=== PATIENT | male | born 1950 | race Caucasian/White ===

== ENCOUNTER 2023-12-18 12:31 | Day surgery (SDC) | payer MEDICARE, OTHER ==
[~2023-12-18] VITALS: Ht 175.3 cm; Wt 83.8 kg
[~2023-12-18 12:31] MED LIST: CIPR500 PO; DIPH50 PO; FELDENE; Flomax0.4 MG PO; HYDR1TAB94 PO; Lactated Ringer's 1,000 ML IV ONE; OLME40 PO; PIRO20 PO; Pyridium100 MG PO; SENN187 PO; TAMS.4ER PO; propofoL 50 ML IV ONE
[2023-12-18] MEDS ORDERED: PIOG15 (13:59)
[2023-12-18] MEDS ORDERED: Lactated Ringer's 1,000 ML IV ONE (14:29)
[2023-12-18 15:49] VITALS: BP 117/82
== END 2023-12-18 15:46 | disposition home or self-care (01) ==
LOC: ORSCSDS 12:31
PROVIDERS: Internal Medicine Gastroenterology
PROC: 0DBH8ZX Excision of Cecum, Via Natural or Artificial Opening Endoscopic, Diagnostic (ICD-10-PCS; principal; 2023-12-18 14:30)
PROC: 0DBK8ZX Excision of Ascending Colon, Via Natural or Artificial Opening Endoscopic, Diagnostic (ICD-10-PCS; principal; 2023-12-18 14:30)
DX: Z12.11 Encounter for screening for malignant neoplasm of colon (principal); Z86.010 Personal history of colon polyps; D12.0 Benign neoplasm of cecum; D12.2 Benign neoplasm of ascending colon; E11.9 Type 2 diabetes mellitus without complications; E78.5 Hyperlipidemia, unspecified; I10 Essential (primary) hypertension; Z79.899 Other long term (current) drug therapy
CPT/HCPCS: 82947; 88305; J2704; J7120